=== PATIENT | male | born 2000 | race Caucasian/White ===

== ENCOUNTER → 2021-05-14 | Outpatient (CLI) | payer OTHER ==
[2021-05-17 11:13] LABS: Brazil Nut IgE <0.10 kU/L (<0.10); Brazil Nut IgE Class CLASS 0; Hazelnut IgE 1.21 kU/L (<0.10); Hazelnut IgE Class CLASS 2
[2021-05-17 11:14] LABS: Cashew IgE <0.10 kU/L (<0.10); Cashew IgE Class CLASS 0; Pecan IgE <0.10 kU/L (<0.10); Pecan IgE Class CLASS 0; Pistachio IgE Class CLASS 0/1
== END | disposition home or self-care (01) ==
LOC: LABWHC1 15:18
PROVIDERS: ATTEND Internal Medicine
DX: L50.9 Urticaria, unspecified (principal)
CPT/HCPCS: 36415; 86003

== ENCOUNTER → 2022-02-18 | Outpatient (CLI) | payer OTHER ==
--- NOTE | 2022-02-19 04:51 | MR ---
EXAMINATION TYPE: MR knee RT wo con DATE OF EXAM: 02/18/2022 COMPARISON: None HISTORY: Knee pain Multiplanar multiecho imaging of the right knee with contrast. There is extensive abnormal increased signal on T2 images in the lateral femoral condyle consistent w ith a large bone bruise. There is small area in the subarticular medial aspect medial femoral condyle and also the medial aspect medial tibial condyle The anterior posterior cruciate ligaments are intact. Patella shows extensive abnormal increased sign al. No fracture line seen. The collateral ligaments are intact. Lateral meniscus is within normal limits. Medial meniscus appear s intact. There is no significant knee joint effusion. IMPRESSION: Multiple areas of bone edema involving the femoral condyles and the patella and the medial tibial con dyle consistent with multiple bone bruises. No evidence of ligament or meniscal tear.
== END | disposition home or self-care (01) ==
LOC: RADMRIMAIN 19:53
PROVIDERS: ATTEND Orthopaedic Surgery
DX: R60.9 Edema, unspecified (principal)